=== PATIENT | female | born 2000 | race African-American/Black ===

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

== ENCOUNTER 2020-04-28 17:26 | Emergency (ER) | payer MEDICAID ==
[~2020-04-28] VITALS: Ht 160 cm; Wt 56.7 kg
[2020-04-28 17:45] VITALS: BP 117/73
== END 2020-04-28 19:55 | disposition home or self-care (01) ==
LOC: ER 17:26
DX: S31.159A Open bite of abdominal wall, unspecified quadrant without penetration into peritoneal cavity, initial encounter (principal); Z53.21 Procedure and treatment not carried out due to patient leaving prior to being seen by health care provider; W64.XXXA Exposure to other animate mechanical forces, initial encounter; Y93.89 Activity, other specified; Y92.89 Other specified places as the place of occurrence of the external cause; Y99.8 Other external cause status

== ENCOUNTER 2021-04-10 07:19 | Emergency (ER) | payer OTHER, MEDICAID ==
[~2021-04-10] VITALS: Ht 160 cm; Wt 59.0 kg
[~2021-04-10 07:19] MED LIST changes: -PREN-153 OR; +PREN1TAB71 OR
[2021-04-10 08:22] VITALS: BP 137/87
[2021-04-10] MEDS ORDERED: ACET-1080 PO (08:33)
[2021-04-10] MEDS ORDERED: AZIT250T8 PO (08:33)
== END 2021-04-10 08:43 | disposition home or self-care (01) ==
LOC: ER 07:19
DX: U07.1 COVID-19 (principal); Z79.2 Long term (current) use of antibiotics; Z79.899 Other long term (current) drug therapy

== ENCOUNTER 2021-08-07 23:13 | Emergency (ER) | payer OTHER, MEDICAID ==
[~2021-08-07] VITALS: Ht 160 cm; Wt 59.0 kg
[~2021-08-07 23:13] MED LIST changes: +ACET-1080 PO; +AZIT250T8 PO
[2021-08-07 23:15] VITALS: BP 124/85
== END 2021-08-07 23:44 | disposition left against medical advice (07) ==
LOC: ER 23:13
DX: R10.13 Epigastric pain (principal); Z53.21 Procedure and treatment not carried out due to patient leaving prior to being seen by health care provider

== ENCOUNTER 2021-08-08 10:55 | Emergency (ER) | payer OTHER, MEDICAID ==
[~2021-08-08] VITALS: Ht 167.6 cm; Wt 54.4 kg
[2021-08-08 10:56] VITALS: BP 108/78
== END 2021-08-08 11:40 | disposition left against medical advice (07) ==
LOC: ER 10:55
DX: R10.9 Unspecified abdominal pain (principal); R11.2 Nausea with vomiting, unspecified; K59.00 Constipation, unspecified; Z53.21 Procedure and treatment not carried out due to patient leaving prior to being seen by health care provider

== ENCOUNTER 2022-01-22 08:21 | Emergency (ER) | payer OTHER, MEDICAID ==
[~2022-01-22] VITALS: Ht 160 cm; Wt 55.2 kg
[2022-01-22 08:49] VITALS: BP 135/88
[2022-01-22 09:33] LABS: Urine Bacteria NONE SEEN /hpf (None Seen); Urine Blood 2+ /uL (Negative); Urine Specific Gravity 1.021 (1.001-1.035); Urine WBC 2 /hpf (0 - 5)
[2022-01-22 09:41] LABS: Basophils # (auto) 0 10 ^3/uL (0-0.2); Basophils % (auto) 0.7 % (0.0-2.0); Eosinophils # (auto) 0 10 ^3/uL (0-0.8); Lymphocytes # (auto) 1.2 10 ^3/uL (0.4-5.4); Monocytes # (auto) 0.2 10 ^3/uL (0-1.3); Neutrophils # (auto) 1.3 10 ^3/uL (1.6-8.6); Nucleated Red Blood Cells % 0.1 %; White Blood Cell 2.9 10^3/uL (4.4-10.8)
[2022-01-22 09:43] LABS: Eosinophils % (auto) 1.3 % (0.0-7.0); Hematocrit 41.5 % (36.0-46.0); Hemoglobin 13.2 g/dL (12.2-16.2); Lymphocytes % (auto) 43.3 % (10.0-50.0); Mean Corpuscular Hemoglobin 26.2 pg (28.0-32.0); Mean Corpuscular Hgb Conc. 31.9 g/dL (32.0-36.0); Mean Corpuscular Volume 82.2 fL (80.0-100.0); Monocytes % (auto) 8.4 % (0.0-12.0); Neutrophils % (auto) 46.3 % (37.0-80.0); Red Blood Cells 5.05 10^6/uL (4.0-5.20); Red Cell Distribution Width 14.3 % (11.8-14.3)
== END 2022-01-22 10:25 | disposition left against medical advice (07) ==
LOC: ER 08:21
DX: N93.9 Abnormal uterine and vaginal bleeding, unspecified (principal); Z32.02 Encounter for pregnancy test, result negative; Z79.899 Other long term (current) drug therapy; Z79.2 Long term (current) use of antibiotics
CPT/HCPCS: 36415; 81001; 84702; 85025

== ENCOUNTER 2022-02-26 13:39 | Emergency (ER) | payer OTHER, MEDICAID ==
[~2022-02-26] VITALS: Ht 162.6 cm; Wt 59.0 kg
[2022-02-26 14:05] VITALS: BP 114/81
== END 2022-02-26 16:08 | disposition left against medical advice (07) ==
LOC: ER 13:39
DX: R05.9 Cough, unspecified (principal); Z53.21 Procedure and treatment not carried out due to patient leaving prior to being seen by health care provider